=== PATIENT | female | born 1970 | race Caucasian/White ===

== ENCOUNTER 2023-01-27 08:11 | Day surgery (SDC) | payer OTHER ==
[~2023-01-27] VITALS: Ht 157.5 cm; Wt 70.8 kg
[2023-01-27] MEDS ORDERED: LIDOCAINE 2% 100 MG/5 ML UJET TP ONE (11:26)
[2023-01-27] MEDS ORDERED: fentaNYL citrate 0.05 MG/ML VIAL ONE (11:26)
[2023-01-27] MEDS ORDERED: fentaNYL citrate 0.05 MG/ML VIAL IVP ONE (12:55)
== END 2023-01-27 12:52 | disposition home or self-care (01) ==
LOC: MDS 08:11 → MMU 08:11 → MDS 12:52
PROVIDERS: ATTEND Internal Medicine Gastroenterology
DX: Z12.11 Encounter for screening for malignant neoplasm of colon (principal); K62.1 Rectal polyp; K57.30 Diverticulosis of large intestine without perforation or abscess without bleeding; Z79.01 Long term (current) use of anticoagulants; Z79.899 Other long term (current) drug therapy
CPT/HCPCS: 45385; J3010